=== PATIENT | female | born 1945 | race Caucasian/White ===

== ENCOUNTER 2018-04-09 15:16 | Observation (INO) | payer OTHER ==
[~2018-04-09] VITALS: Ht 152.4 cm; Wt 79.4 kg
[2018-04-09] VITALS (8 sets, daily range): BP systolic 128–161; BP diastolic 60–89; Ht 152.4 cm; Wt 79.4 kg
--- NOTE | ~2018-04-09 | HEMODYNAMI ---
PATIENT:TIFFANY CONTEH MEDICAL RECORD: [id number] : 45 LOC[facility] ADMISSION DATE: 04/09/18 Generatedon:04/10/20189:42 Patient name: TIFFANY CONTEH Patient #: [id number] SSN: : Date of study: 04/10/2018 Page: Of Hemodynamic Procedure Report Patient Data Patient Demographics Procedure consent was obtained First Name: TIFFANY Gender: Female Last Name: WERO : 1945 Patient #: [id number] Age: 73 year(s) Race: Unknown Additional ID: [id number] Contact details Address: [address] [place] [address] State: [place] City: [facility] Zip code: [address] Past Medical History Allergies Allergen Reaction Date Comments Reported Other allergy 04/10/2018 calin Maria codiene Admission Admission Data Admission Date: 04/09/2018 Admission Time: 22:14 Room #: [facility] Procedure Procedure Types Cath Procedure Diagnostic Procedure [facility] w/Coronaries Sedation Charges Moderate Sedation up to 30 minutes PCI Procedure Coronary Stent Coronary Stent Initial Procedure Description Procedure Date Procedure Date: 04/10/2018 Procedure Start Time: 9:10 Procedure End Time: 9:42 Procedure Staff Name Function Gab Peoples MD Performing Physician Radha Valentine RT Monitor Kem Rosario RN Nurse Melvi Watt RT Scrub Procedure Data Cath Procedure Fluoroscopy Diagnostic fluoroscopy Total fluoroscopy Time: 5.8 time: 5.8 min min Diagnostic fluoroscopy Total fluoroscopy dose: 656 dose: 656 mGy mGy Contrast Material Contrast Material Type Amount (ml) Isovue 300 72 Entry Location Entry Primary Successful Side Size Upsize Upsize Entry Closure [place] ccessful Closure Location (Fr) 1 (Fr) 2 (Fr) Remarks Device Remarks Radial Right 6 Fr Mechanical artery Short Compression Estimated blood loss: 10 ml Diagnostic catheters Device Type Used For End Catheter Placement DIAGNOSTIC Praveen 110cm LV Angiography 5Fr catheter ([id number]) DIAGNOSTIC Praveen 110cm Right Coronary 5Fr catheter ([id number]) Angiography DIAGNOSTIC Praveen 110cm Left Coronary 5Fr catheter (439211) Angiography Procedure Complications No complications Procedure Medications Medication Administration Route Dosage 0.9% NaCl I.V. 100 ml/hr Oxygen etCO2 Nasal cannula 2 l/min Heparin Flush Bag added to field 2 bags (1000units/500ml NS) Lidocaine 2% added to field 20 Radial Cocktail added to field 1 syringe (Verapomil 2mg/Nitro 400mcg/Heparin 1500units) Versed I.V. 1 mg Fentanyl I.V. 50 mcg Radial Cocktail I.A. 1 syringe (Verapomil 2mg/Nitro 400mcg/Heparin 1500units) Radial Cocktail added to field 1 syringe (Verapomil 2mg/Nitro 400mcg/Heparin 1500units) Radial Cocktail I.A. 1 syringe (Verapomil 2mg/Nitro 400mcg/Heparin 1500units) Angiomax (bolus) I.V. 11 ml Angiomax Drip I.V. drip 26 ml/hr (250mg/50ml NS) (Standard) Nitroglycerin IC/IA I.C. 300 mcg Angiomax Drip 26 ml/hr (250mg/50ml NS) (Standard) Plavix P.O. 300 mg Hemodynamics Rest Heart Rate: 83 (bpm) Pressure Samples Time Site Value (mmHg) Purpose Heart Use Rate(bpm) 9:19 LV 129/0,10 EDP 91 Gradients Valve Time Site Site Mean SEP/DFP Peak To Heart Use 1 2 (mmHg) (sec/min) Peak Rate (mmHg) (bpm) Aortic 9:19 LV AO 95 Snapshots Pre Cath Intra NCS Post Cath Vital Signs Time Heart Resp SPO2 etCO2 NIBP (mmHg) Rhythm Pain Sedation Rate (ipm) (%) (mmHg) Status Level (bpm) 8:59:02 84 33 97 0 218/92(136) NSR 0 (11) 10(A) , No pain 9:04:17 83 23 99 36 201/86(133) NSR 0 (11) 10(A) , No pain 9:09:26 81 16 98 42 190/76(132) NSR 0 (11) 10(A) , No pain 9:15:33 87 17 97 41.3 188/79(119) NSR 0 (11) 10(A) , No pain 9:20:32 89 20 97 38.3 160/75(117) NSR 0 (11) 10(A) , No pain 9:25:29 89 19 97 40.5 180/72(114) NSR 0 (11) 10(A) , No pain 9:30:30 88 18 98 39.8 191/80(128) NSR 0 (11) 10(A) , No pain 9:35:37 95 25 98 40.6 166/71(103) NSR 0 (11) 10(A) , No pain 9:40:37 86 17 97 38.3 183/70(125) NSR 0 (11) 10(A) , No pain Medications Time Medication Route Dose Verified Delivered Reason Note s Effectiveness by by 8:59:01 0.9% NaCl I.V. 100 Kem Kem Per physician ml/hr Abraham Rosario RN RN 8:59:28 Oxygen etCO2 2 l/min Kem Kem Per physician Nasal Abraham Rosario cannula RN RN 8:59:39 Heparin Flush added 2 bags Kem Kem used for Bag to Lorigan Lorfatimah procedure (1000units/500ml [facility] RN RN NS) 8:59:50 Lidocaine 2% added 20ml Kem Kem for local to vial Lorigan Lorigan anesthetic field RN RN 9:00:09 Radial Cocktail added 1 Kem Kem used for (Verapomil to syringe Lorigan Lorigan procedure 2mg/Nitro field RN RN 400mcg/Heparin 1500units) 9:06:00 Versed I.V. 1 mg Kem Kem for sedation Abraham Rosario RN RN 9:06:08 Fentanyl I.V. 50 mcg Kem Kem for sedation Abraham Rosario RN RN 9:15:23 Radial Cocktail I.A. 1 Kem Gab for (Verapomil syringe Abraham Peoples MD vasodilation 2mg/Nitro RN 400mcg/Heparin 1500units) 9:15:59 Radial Cocktail added 1 Kem Kem for (Verapomil to syringe Lorigan Lorigan vasodilation 2mg/Nitro field RN RN 400mcg/Heparin 1500units) 9:16:09 Radial Cocktail I.A. 1 Kem Gab for (Verapomil syringe Abraham Peoples MD vasodilation 2mg/Nitro RN 400mcg/Heparin 1500units) 9:28:32 Angiomax (bolus) I.V. 11 ml Kem Kem for Abraham Rosario anticoagulation RN RN 9:30:59 Angiomax Drip I.V. 26 Kem Kem for (250mg/50ml NS) drip ml/hr Abraham Rosario anticoagulation (Standard) RN RN 9:35:05 Nitroglycerin I.C. 300 mcg Kemdayna De Guzman for IC/IA Abraham Peoples MD vasodilation RN 9:38:05 Angiomax Drip stopped 26 Kem Kem Per physician (250mg/50ml NS) ml/hr Abraham Lorigan (Standard) RN RN 9:38:30 Plavix P.O. 300 mg Kem Kem for Abraham Rosario antiplatelet RN RN therapy Procedure Log Time Note 8:33:17 Time tracking: Regular hours (M-F 7:00 - 5:00) 8:33:21 Plan of Care:Hemodynamics will remain stable., Cardiac rhythm will remain stable., Comfort level will be maintained., Respiratory function will remain adequate., Patient/ family verbilizes understanding of procedure., Procedure tolerated without complication., Recovers from procedure without complications.. 8:39:27 Kem Rosario RN sent for patient. Start room use. 8:39:30 Signed procedure consent form obtained from patient. 8:49:09 Patient received from ED to CCL 1 Alert and oriented. Tansferred to table in Supine position. 8:49:10 Warm blankets applied, and augusto hugger turned on for patient comfort. 8:49:10 Correct patient and procedure confirmed by team. 8:49:11 ECG and BP/O2 sat monitors applied to patient. 8:56:46 Vital chart was started 8:59:01 0.9% NaCl 100 ml/hr I.V. was administered by Kem Rosario RN; Per physician; 8:59:28 Oxygen 2 l/min etCO2 Nasal cannula was administered by Kem Rosario RN; Per physician; 8:59:39 Heparin Flush Bag (1000units/500ml NS) 2 bags added to field was administered by Kem Rosario RN; used for procedure; 8:59:50 Lidocaine 2% 20ml vial added to field was administered by Kem Rosario RN; for local anesthetic; 9:00:09 Radial Cocktail (Verapomil 2mg/Nitro 400mcg/Heparin 1500units) 1 syringe added to field was administered by Kem Rosario RN; used for procedure; 9:00:56 Full Disclosure recording started 9:01:04 Baseline sample Acquired. 9:01:09 Rhythm: sinus rhythm 9:01:31 H&P Date Dictated: 04/09/2018 Within 30 days and on chart., ER History on chart.. 9:01:32 Pre-procedure instructions explained to patient. 9:01:33 Pre-op teaching completed and patient verbalized understanding. 9:01:34 Family in waiting room. 9:01:36 Patient NPO since Midnight. 9:02:29 Patient allergic to Other allergycalin Maria codiene 9:02:31 Is the patient allergic to Iodine/contrast media? No. 9:02:33 Is patient on blood thinner?Yes 9:02:35 ACC The patient was administered the following blood thiners within the last 24 hours: ACCPlavix 9:02:37 Patient diabetic? Yes. 9:02:40 Previous problem with sedation/anesthesia? No ? 9:02:57 Snore? No 9:02:58 Sleep apnea? No 9:02:59 Deviated septum? No 9:03:00 Opens mouth fully? Yes 9:03:01 Sticks out tongue? Yes 9:03:02 Airway obstruction? No ? 9:03:07 Dentures? No ? 9:03:25 PATIENT HAS BEEN OFF METFORMIN FOR 2 MONTHS 9:03:28 Pre procedure: right dorsailis pedis pulse 2+ Normal; easily identifiable; not easily obliterated 9:03:30 Modified Jose Enrique's test Ulnar < 7 seconds 9:03:32 Patient pain scale 0/10 ?. 9:03:38 IV patent on arrival in left forearm with 0.9% NaCl at O. 9:03:40 Lab results completed and on chart. 9:03:44 Right Radial & Right Groin area was prepped with chlora-prep and draped in sterile fashion 9:03:45 Alarms reviewed by R. N. 9:03:45 Sharps counted by scrub and verified by R.N. 9:03:49 Use device set Radial Dx or PCI 9:03:50 ACIST Syringe (07053) opened to sterile field. 9:03:50 Medline Cath Pack ([id number]) opened to sterile field. 9:03:51 Bag Decanter (2002S) opened to sterile field. 9:03:51 DIAGNOSTIC WIRE .035 260cm J wire (673196) opened to sterile field. 9:03:52 ACIST Hand Control (92763) opened to sterile field. 9:03:52 ACIST Manifold (85963) opened to sterile field. 9:03:53 MBrace Wrist Support ([id number]) opened to sterile field. 9:03:54 SHEATH 6Fr Prelude Radial ([id number]) opened to sterile field. 9:04:01 Final Timeout: patient, procedure, and site verified with staff and physician. All members of the team are in agreement. 9:04:03 Right Radial site verified by team. 9:04:07 Physical assessment completed. ASA score P 3 - A patient with severe systemic disease as per Gab Peoples MD. 9:04:10 Sedation plan: IV Moderate Sedation Medication:Versed, Fentanyl 9:06:00 Versed 1 mg I.V. was administered by Kem Rosario RN; for sedation; 9:06:08 Fentanyl 50 mcg I.V. was administered by Kem Rosario RN; for sedation; 9:06:47 Zero performed for pressure channel P1 9:10:43 Procedure started. 9:10:53 Local anesthetic to right radial artery with Lidocaine 2% by Gab Peoples MD.INITIAL ACCESS ONLY 9:13:34 ACCESS OBTAINED WITH 21G ACCESS NEEDLE AND FIELDER WIRE 9:14:47 FIELDER XT 190cm guidewire ([id number]) opened to sterile field. 9:15:23 Radial Cocktail (Verapomil 2mg/Nitro 400mcg/Heparin 1500units) 1 syringe I.A. was administered by Gab Peoples MD; for vasodilation; 9:15:26 A 6 Fr Short sheath was inserted into the Right Radial artery 9:15:59 Radial Cocktail (Verapomil 2mg/Nitro 400mcg/Heparin 1500units) 1 syringe added to field was administered by Kem Rosario RN; for vasodilation; 9:16:09 Radial Cocktail (Verapomil 2mg/Nitro 400mcg/Heparin 1500units) 1 syringe I.A. was administered by Gab Peoples MD; for vasodilation; 9:16:59 A DIAGNOSTIC Praveen 110cm 5Fr catheter (829953) was advanced over the wire and used for LV Angiography. 9:19:20 LV gram done using TESFAYE 9:19:21 LV hemodynamics recorded. 9:19:24 Injector settings: Ml/sec: 12, Volume: 8, 9:20:53 A DIAGNOSTIC Praveen 110cm 5Fr catheter ([id number]) was advanced over the wire and used for Right Coronary Angiography. 9:21:47 A DIAGNOSTIC Praveen 110cm 5Fr catheter (744607) was advanced over the wire and used for Left Coronary Angiography. 9:22:35 Catheter removed. 9::59 Use device set [employer] PCI 9:23:01 INFLATOR Merit BasixCompak ([id number]) opened to sterile field. 9:23:01 COPILOT Valve Control ([id number]) opened to sterile field. 9:26:10 6 Fr XBLAD 3.5 SH guide catheter was inserted over the wire 9:27:52 BMW wire advanced. 9:28:32 Angiomax (bolus) 11 ml I.V. was administered by Kem Rosario RN; for anticoagulation; 9:30:59 Angiomax Drip (250mg/50ml NS) (Standard) 26 ml/hr I.V. drip was administered by Kem Rosario RN; for anticoagulation; 9:32:15 Place stent Inflation Number: 1 A ANGÉLICA RX 2.5 x 26 stent ([id number]) was prepped and advanced across the Mid CX. The stent was deployed at 0 NADYA for 0:17 (min:sec). 9:32:47 Stent catheter was removed intact over wire. 9:35:05 Nitroglycerin IC/IA 300 mcg I.C. was administered by Gab Peoples MD; for vasodilation; 9:36:02 Wire removed. 9:36:02 Guide catheter removed. 9:36:12 Sheath removed intact; hemostasis achieved with Mechanical Compression to the Right Radial artery. 9:36:17 Procedure ended.(Physican Out) 9:36:25 Fluoroscopy time 05.80 minutes. 9:36:29 Flurop Dose total: 656 9:36:29 Fluoroscopy dose: 656 mGy 9:36:34 Contrast amount:Isovue 300 72ml. 9:36:35 Sharps counted by scrub and verified by R.N. 9:36:38 TR band inflated with 12cc of air. 9:36:39 Insertion/operative site no bleeding no hematoma. 9:36:48 Post right radial artery:stable, clean and dry 9:36:49 Post Procedure Pulses reassessed and unchanged 9:36:53 Post-procedure physical assessment completed. ASA score P 2 - A patient with mild systemic disease as per Gab Peoples MD. 9:36:55 Post procedure rhythm: unchanged. 9:36:58 Estimated blood loss: 10 ml 9:37:00 Post procedure instruction explained to patient.Patient verbalizes understanding. 9:37:00 Patient needs reinforcement of post procedure teaching. 9:37:28 Procedure type changed to Cath procedure, Diagnostic procedure, LHC, LHC w/Coronaries, Sedation Charges, Moderate Sedation up to 30 minutes, PCI procedure, Coronary Stent, Coronary Stent Initial 9:37:51 TR BAND Standard ([id number]) opened to sterile field. 9:38:05 Angiomax Drip (250mg/50ml NS) (Standard) 26 ml/hr stopped was administered by Kem Rosario RN; Per physician; 9:38:15 GUIDE 6FR XBLAD 3.5 SH catheter ([id number]) opened to sterile field. 9:38:30 Plavix 300 mg P.O. was administered by Kem Rosario RN; for antiplatelet therapy; 9:38:44 BMW 190cm [place] 2 J wire ([id number]) opened to sterile field. 9:39:31 Procedure Complication : No complications 9:39:35 See physician's report for complete and final results. 9:39:37 Procedure and supply charges have been captured, reviewed, submitted and are correct. 9:42:04 Vital chart was stopped 9:42:06 Report given to Pre/Post Procedure Room. 9:42:09 Patient transfered to Pre/Post Procedure Room with Stretcher. 9:42:19 Procedure ended. 9:42:19 Full Disclosure recording stopped 9:42:22 End room use (Document Last) Intervention Summary Intervention Notes Time ActionType Lesion and Equipment Used Action# Pressure Duration Attributes 9:32:15 Place stent Mid CX ANGÉLICA RX 2.5 x 1 0 00:17 26 stent ([id number]) Device Usage Item Name Manufacture Quantity Catalog Number Hospital Part Current Minimal Lot# / Charge Number Stock Stock Serial# Code ACIST Syringe Acist 1 64942 138147 911620 725351 20 (67503) [employer] Medline Cath Cardinal 1 [id number] 625644 51334 811923 5 Pack Health ([id number]) Bag Decanter Microtek 1 2001S 642784 18958 171619 5 (2001S) Medical Inc. DIAGNOSTIC WIRE St Favio 1 787639 866323 810950 295426 30 .035 260cm J wire (732902) ACIST Hand Acist 1 87157 576208 573022 967944 5 Control (10246) [employer] Inc ACIST Manifold Acist 1 05449 613042 782623 577920 5 (87998) [employer] Inc MBrace Wrist Advanced 1 140-0250-00 906074 05575 676201 5 Support Vascular ([id number]) Dynamics SHEATH 6Fr Merit 1 [id number] 823844 962855 135596 5 Prelude Radial Medical ([id number]) FIELDER XT Garcia 1 [id number] 645246 18746 938595 5 190cm guidewire Vascular ([id number]) DIAGNOSTIC Terumo 1 40-7847 792411 969294 073681 5 Praveen 110cm 5Fr catheter (782293) INFLATOR Merit Merit 1 QS5090 336555 421320 344829 15 BasixCompak Medical (EI7574) COPILOT Valve Garcia 1 4606325 955886 406363 585520 5 Control Vascular (6289899) ANGÉLICA RX 2.5 x Medtronic 1 [id number] 684040 8485024 833713 5 [id number] 26 stent ([id number]) TR BAND Terumo 1 [id number] 753148 339939 218661 40 Standard ([id number]) GUIDE 6FR XBLAD Cardinal 1 [id number] 285192 931262 596026 3 3.5 catheter Health (29058228) BMW 190cm Garcia 1 [id number] 737482 24048 225368 5 Wayzata 2 J Vascular wire ([id number]) Signature Audit [place] Stage Time Signature Unsigned Intra-Procedure 04/10/2018 Radha 9:42:34 AM Counts RT(R) Signatures Monitor : Radha Signature : Counts RT Date : Time : [address] [place] [address]
[2018-04-09] MEDS ORDERED: NOLVADEX10 M1 PO (15:37)
[2018-04-09] MEDS ORDERED: LEVOXYL25 MCG (15:38)
[2018-04-09] MEDS ORDERED: CEREFOLIN TAB1 TAB PO (15:38)
[2018-04-09] MEDS ORDERED: HYDROCHLOROTHIA25 MG PO (15:39)
[2018-04-09] MEDS ORDERED: CELEXA10 MG PO (15:39)
[2018-04-09 16:15] LABS: BASOPHILS 0.6 % (0-2); EOSINOPHILS 2.6 % (0-7); HEMATOCRIT 37.2 % (36.0-48.0); HEMOGLOBIN 12.5 g/dL (12-16); IMMATURE GRANULOCYTES 0.3 % (0-5); LYMPHOCYTES 44.7 % (15-50); MCH 31.6 pg (26.0-34.0); MCHC 33.6 g/dL (31.0-37.0); MCV 93.9 fL (80.0-100.0); MEAN PLATELET VOLUME 9.7 fL (7.4-10.4); MONOCYTES 6.7 % (2-11); NEUTROPHILS 45.1 % (40-80); PLATELET COUNT 190 10x3/uL (130-400); RBC 3.96 10x6/uL (4.00-5.40); RDW 13.6 % (11.5-14.5); WBC 6.3 10x3/uL (4.8-10.8)
[2018-04-09 16:37] LABS: ALBUMIN 3.4 g/dL (3.4-5.0); ALKALINE PHOSPHATASE 65 U/L (46-116); ALT (SGPT) 32 U/L (10-68); BILIRUBIN - TOTAL 0.14 mg/dL (0.2-1.3); CALC OSMOLALITY 283 mosm/kg (275-300); CALCIUM 8.9 mg/dL (8.5-10.1); CARBON DIOXIDE 28.3 mmol/L (21.0-32.0); CHLORIDE - SERUM 103 mmol/L (98-107); CREATININE - SERUM 0.7 mg/dL (0.6-1.3); GLUCOSE 183 mg/dL (74-106); POTASSIUM - SERUM 3.9 mmol/L (3.5-5.1); PROTEIN - SERUM 6.8 g/dL (6.4-8.2); SODIUM 139 mmol/L (136-145); UREA NITROGEN 15 mg/dL (7-18); eGFR NON AFRICAN AMERICAN 87 mL/min (90-120)
[2018-04-09 16:49] LABS: CKMB 0.8 U/L (0.0-3.6); CREATINE KINASE 41 UL (21-215)
[2018-04-09 17:03] LABS: TROPONIN-I < 0.017 ng/mL (0.000-0.060)
[2018-04-09 19:13] LABS: APPEARANCE CLEAR (CLEAR); BILIRUBIN NEGATIVE (NEGATIVE); COLOR YELLOW (YELLOW); GLUCOSE NEGATIVE (NEGATIVE); KETONE NEGATIVE (NEGATIVE); NITRITE NEGATIVE (NEGATIVE); PROTEIN NEGATIVE (NEGATIVE); SPECIFIC GRAVITY 1.015 (1.005-1.020); UROBILINOGEN NORMAL (NORMAL)
[2018-04-09 20:11] LABS: CKMB 0.9 U/L (0.0-3.6); CREATINE KINASE 37 UL (21-215); TROPONIN-I < 0.017 ng/mL (0.000-0.060)
[2018-04-10] VITALS (8 sets, daily range): BP systolic 120–150; BP diastolic 37–71
[2018-04-10 05:05] LABS: BASOPHILS 0.8 % (0-2); EOSINOPHILS 3.9 % (0-7); HEMATOCRIT 38.6 % (36.0-48.0); HEMOGLOBIN 12.9 g/dL (12-16); IMMATURE GRANULOCYTES 0.3 % (0-5); LYMPHOCYTES 44.9 % (15-50); MCH 31.6 pg (26.0-34.0); MCHC 33.4 g/dL (31.0-37.0); MCV 94.6 fL (80.0-100.0); MONOCYTES 8.7 % (2-11); NEUTROPHILS 41.4 % (40-80); PLATELET COUNT 201 10x3/uL (130-400); RBC 4.08 10x6/uL (4.00-5.40); RDW 13.5 % (11.5-14.5); WBC 6.4 10x3/uL (4.8-10.8)
[2018-04-10 05:35] LABS: ALBUMIN 3.3 g/dL (3.4-5.0); ALKALINE PHOSPHATASE 55 U/L (46-116); ALT (SGPT) 33 U/L (10-68); BILIRUBIN - TOTAL 0.16 mg/dL (0.2-1.3); CALC OSMOLALITY 278 mosm/kg (275-300); CALCIUM 8.9 mg/dL (8.5-10.1); CARBON DIOXIDE 32.7 mmol/L (21.0-32.0); CHLORIDE - SERUM 103 mmol/L (98-107); CKMB 0.7 U/L (0.0-3.6); CREATINE KINASE 32 UL (21-215); CREATININE - SERUM 0.8 mg/dL (0.6-1.3); POTASSIUM - SERUM 3.7 mmol/L (3.5-5.1); PROTEIN - SERUM 6.6 g/dL (6.4-8.2); SODIUM 139 mmol/L (136-145); TROPONIN-I < 0.017 ng/mL (0.000-0.060); UREA NITROGEN 13 mg/dL (7-18); eGFR NON AFRICAN AMERICAN 74 mL/min (90-120)
[2018-04-10 05:36] LABS: GLUCOSE 123 mg/dL (74-106)
[2018-04-10] MEDS ORDERED: PLAVIX75 MG PO (09:54)
[2018-04-10] MEDS ORDERED: LIPITOR20 MG PO (09:55)
[2018-04-10] MEDS ORDERED: LOPRESSOR25 MG PO (09:55)
== END 2018-04-10 14:04 | disposition home or self-care (01) ==
LOC: D.ER 15:16 → D.CLR 22:14 → D.EDHOLD 22:14 → OBSVTIME 22:14 → D.CLR 04-10 08:47
PROVIDERS: Family Medicine
DX: I25.10 Atherosclerotic heart disease of native coronary artery without angina pectoris (principal); E11.9 Type 2 diabetes mellitus without complications; I10 Essential (primary) hypertension; E78.00 Pure hypercholesterolemia, unspecified

== ENCOUNTER → 2018-04-24 17:46 | Outpatient (CLI) | payer OTHER ==
[~2018-04-24 17:46] MED LIST: CELEXA10 MG PO; CEREFOLIN TAB1 TAB PO; HYDROCHLOROTHIA25 MG PO; LEVOXYL25 MCG; LIPITOR20 MG PO; LOPRESSOR25 MG PO; NOLVADEX10 M1 PO; PLAVIX75 MG PO
[2018-04-24 18:48] LABS: CHOL - HDL RATIO 4.2 ratio (2.3-4.1); LDL-HDL RATIO 2.5 ratio (1.5-3.5)
== END | disposition home or self-care (01) ==
LOC: D.LABREF 17:46
PROVIDERS: Internal Medicine Cardiovascular Disease
DX: E78.5 Hyperlipidemia, unspecified (principal)

== ENCOUNTER → 2018-05-22 17:17 | Outpatient (CLI) | payer OTHER ==
[2018-05-22 17:46] LABS: ANION GAP 11.4 mmol/L (8-16); CALCIUM 8.7 mg/dL (8.5-10.1); CARBON DIOXIDE 27.6 mmol/L (21.0-32.0); CREATININE - SERUM 0.8 mg/dL (0.6-1.3)
== END | disposition home or self-care (01) ==
LOC: D.LABREF 17:17
PROVIDERS: Internal Medicine Cardiovascular Disease
DX: I10 Essential (primary) hypertension (principal)

== ENCOUNTER → 2018-08-14 16:44 | Outpatient (CLI) | payer OTHER ==
[2018-08-14 19:14] LABS: CHOL - HDL RATIO 7.8 ratio (2.3-4.1); LDL-HDL RATIO 5.2 ratio (1.5-3.5)
== END | disposition home or self-care (01) ==
LOC: D.LABREF 16:44
PROVIDERS: Internal Medicine Cardiovascular Disease
DX: I25.10 Atherosclerotic heart disease of native coronary artery without angina pectoris (principal)

== ENCOUNTER → 2018-11-27 18:42 | Outpatient (CLI) | payer OTHER ==
[2018-11-27 19:06] LABS: CHOL - HDL RATIO 3.1 ratio (2.3-4.1); LDL-HDL RATIO 1.2 ratio (1.5-3.5)
== END | disposition home or self-care (01) ==
LOC: D.LABREF 18:42
PROVIDERS: ATTEND Internal Medicine Cardiovascular Disease
DX: E78.5 Hyperlipidemia, unspecified (principal)

== ENCOUNTER → 2019-12-03 18:55 | Outpatient (CLI) | payer OTHER ==
[2019-12-03 21:13] LABS: CHOL - HDL RATIO 3.7 ratio (2.3-4.1); LDL-HDL RATIO 1.8 ratio (1.5-3.5)
== END | disposition home or self-care (01) ==
LOC: D.LABREF 18:55
PROVIDERS: ATTEND Internal Medicine Cardiovascular Disease
DX: E78.5 Hyperlipidemia, unspecified (principal)

== ENCOUNTER → 2020-01-07 08:13 | Outpatient (CLI) | payer OTHER | END | disposition home or self-care (01) | LOC: D.HCCARDIO 08:13 | PROVIDERS: ATTEND Internal Medicine Cardiovascular Disease | DX: I25.10 Atherosclerotic heart disease of native coronary artery without angina pectoris (principal) ==

== ENCOUNTER 2020-01-14 07:03 | Outpatient (CLI) | payer OTHER ==
[2020-01-14] VITALS (8 sets, daily range): BP systolic 119–142; BP diastolic 57–65; Ht 152.4 cm; Wt 70.5 kg
[~2020-01-14] VITALS: Ht 152.4 cm; Wt 70.5 kg
--- NOTE | ~2020-01-14 | HEMODYNAMI ---
PATIENT:TIFFANY CONTEH MEDICAL RECORD: [id number] : 45 LOCATION:D.CAT ADMISSION DATE: 01/14/20 Generatedon:01/14/202011:02 Patient name: TIFFANY CONTEH Patient #: [id number] SSN: [id number] : 1945 Date of study: 01/14/2020 Page: Of Hemodynamic Procedure Report Patient Data Patient Demographics Procedure consent was obtained First Name: TIFFANY Gender: Female Last Name: WERO : 1945 Patient #: [id number] Age: 74 year(s) Race: SSN: [id number] Additional ID: [id number] Contact details Address: [address] [place] [address] State: [place] City: [facility] Zip code: [address] Past Medical History Performed procedures and imaging results Date Procedure Procedure Results Comments 01/07/2020 Stress testing Positive->Intermediate with SPECT MPI risk Allergies Allergen Reaction Date Comments Reported Other allergy 04/10/2018 calin Maria codiene Other allergy 01/14/2020 CALIN WALLACE TALWIN Admission Admission Data Admission Date: 01/14/2020 Admission Time: 7:03 Arrival Date: 01/14/2020 Arrival Time: 0:00 Admit Source: Other Insurance Payor: Private health insurance [facility] #: [id number] Height (in.): 68 BSA: 1.7 (m2) Height (cm.): 172.72 BMI: 19.81 (kg/m2) Weight (lbs.): 130.27 Weight (kg.): 59.09 Lab Results Lab Result Date: 01/14/2020 Lab Result Time: 0:00 Biochemistry Name Units Result Min Max BUN mg/dl 17 --(---*)-- 7 18 Creatinine mg/dl 0.8 --(-*--)-- 0.6 1.3 eGFR ml/min 73.84040 *-(----)-- 90 120 NONAFRICAN CBC Name Units Result Min Max Hematocrit % 41.2 -*(----)-- 42 54 Hemoglobin g/dl 13.6 --(*---)-- 13.5 17.5 Procedure Procedure Types Cath Procedure Diagnostic Procedure [facility] w/Coronaries FFR/IVUS FFR Initial Sedation Charges Moderate Sedation up to 45 minutes PCI Procedure Hemochron ACT Test Procedure Description Procedure Date Procedure Date: 01/14/2020 Procedure Start Time: 10:18 Procedure End Time: 11:00 Procedure Staff Name Function Donovan Mederos MD Performing Physician Evette Welch RT Monitor Breanna Iniguez RT Scrub Jam Winston RN Nurse Procedure Data Cath Procedure Fluoroscopy Diagnostic fluoroscopy Total fluoroscopy Time: 5 time: 5 min min Diagnostic fluoroscopy Total fluoroscopy dose: 362 dose: 362 mGy mGy Contrast Material Contrast Material Type Amount (ml) Isovue 300 59 Entry Location Entry Primary Successful Side Size Upsize Upsize Entry Closure Succes sful Closure Location (Fr) 1 (Fr) 2 (Fr) Remarks Device Remarks Femoral Right 5 Fr AFTER Exoseal artery MICRO ACCESS Estimated blood loss: 10 ml Diagnostic catheters Device Type Used For End Catheter Placement MULTIPACK JL 4.0 5Fr Procedure catheter MULTIPACK 3DRC 5Fr Procedure catheter MULTIPACK Pigtail 5 Fr Procedure catheter Procedure Complications No complications Procedure Medications Medication Administration Route Dosage Versed I.V. 1 mg Fentanyl I.V. 50 mcg Oxygen etCO2 Nasal cannula 2 l/min Lidocaine 2% added to field 20 Heparin Flush Bag added to field 2 bags (1000units/500ml NS) 0.9% NaCl I.V. 100 ml/hr Fentanyl I.V. 50 mcg Versed I.V. 1 mg Versed I.V. 1 mg Fentanyl I.V. 50 mcg Heparin Bolus I.V. 2000 units Fentanyl I.V. 50 mcg Hemodynamics Rest BSA: 1.7 (m2) HGB: 13.6 (g/dl) O2 Consumption: Estimated: 157.76 (ml/min) O2 Con sumption indexed: Estimated:92.8 (ml/min/m) Heart Rate: 74 (bpm) Pressure Samples Time Site Value (mmHg) Purpose Heart Use Rate(bpm) 10:49 LV 113/14,21 Snapshot 65 10:49 AO 126/65(91) Pullback 81 10:49 LV 115/-3,12 Pullback 81 Gradients Valve Time Site 1 Site 2 Mean SEP/DFP Peak To Heart Use (mmHg) (sec/min) Peak Rate (mmHg) (bpm) Aortic 10:49 LV AO 0 4 0 81 115/-3,12 126/65(91) Calculations Valve P-P Mean Valve Index Valve Source Name Gradient Area Flow (cm2) Aortic 0 0 0 0 Snapshots Pre Cath Intra NCS Post Cath Vital Signs Time Heart Resp SPO2 etCO2 NIBP (mmHg) Rhythm Pain Sedation Rate (ipm) (%) (mmHg) Status Level (bpm) 10:10:10 72 21 98 0 168/89(133) NSR 0 (11) 10(A) , No pain 10:14:30 71 18 97 39 155/79(134) NSR 0 (11) 10(A) , No pain 10:18:46 72 24 98 40.5 124/73(96) NSR 0 (11) 10(A) , No pain 10:22:52 67 14 98 35.2 125/73(87) NSR 0 (11) 10(A) , No pain 10:26:54 73 18 98 39 142/84(111) NSR 0 (11) 9(A) , No pain 10:31:04 75 17 97 41.2 140/75(107) NSR 0 (11) 9(A) , No pain 10:35:14 69 16 99 40.5 142/75(122) NSR 0 (11) 9(A) , No pain 10:39:25 74 16 97 37.5 133/70(101) NSR 0 (11) 9(A) , No pain 10:43:31 75 15 97 41.2 135/78(104) NSR 0 (11) 9(A) , No pain 10:47:41 87 13 96 41.2 133/70(101) NSR 0 (11) 9(A) , No pain 10:51:49 81 12 97 40.4 128/76(91) NSR 0 (11) 9(A) , No pain 10:55:57 80 13 96 33.7 124/68(107) NSR 0 (11) 10(A) , No pain 11:00:56 78 13 98 44.2 144/81(113) NSR 0 (11) 9(A) , No pain Medications Time Medication Route Dose Verified Delivered Reason Notes Effectiveness by by 10:10:58 Oxygen etCO2 2 Donovan Buffie used for Nasal l/min Gatito Winston RN procedure cannula 10:11:04 Lidocaine 2% added 20ml Donovan Buffie used for to vial Gatito Winston RN procedure field 10:11:10 Heparin Flush added 2 Donovan Buffie used for Bag to bags Gatito Winston RN procedure (1000units/500ml field NS) 10:11:18 0.9% NaCl I.V. 100 Donovan Buffie Per physician ml/hr Gatito Winston RN 10:15:34 Versed I.V. 1 mg Donovan Buffie for sedation Gatito Winston RN 10:15:39 Fentanyl I.V. 50 Donovan Buffie for sedation mcg Gatito Winston RN 10:22:33 Versed I.V. 1 mg Donovan Buffie for sedation Gatito Winston RN 10:22:41 Fentanyl I.V. 50 Donovan Buffie for sedation mcg Gatito Winston RN 10:35:14 Versed I.V. 1 mg Donovan Buffie for sedation Gatito Winston RN 10:35:17 Fentanyl I.V. 50 Donovan Buffie for sedation mcg Gtaito Winston RN 10:43:19 Fentanyl I.V. 50 Donovan Buffie for sedation mcg Gatito Winston RN 10:51:48 Heparin Bolus I.V. 2000 Donovan Buffie for Verif ied units Gatito Winston RN anticoagulation with dr Mederos for IFR Procedure Log Time Note 9:44:14 Diagnostic Cath Status : Elective 9:44:45 Procedure Status Elective Heart Cath (OP). 9:44:48 Jam Winston RN sent for patient. Start room use. 9:44:49 Time tracking: Regular hours (M-F 7:00 - 5:00) 9:44:53 Plan of Care:Hemodynamics will remain stable., Cardiac rhythm will remain stable., Comfort level will be maintained., Respiratory function will remain adequate., Patient/ family verbilizes understanding of procedure., Procedure tolerated without complication., Recovers from procedure without complications.. 9:53:19 Lab Result : Hemoglobin 13.6 g/dl 9:53:19 Lab Result : eGFR NONAFRICAN 73.33351 ml/min 9:53:19 Lab Result : BUN 17 mg/dl 9:53:19 Lab Result : Creatinine 0.8 mg/dl 9:53:20 Lab Result : Hematocrit 41.2 % 9:53:26 Arrival Date: 01/14/2020 12:00:00 AM 9:53:26 Admit Source: Other 9:54:17 Patient Height : 68 inches 9:54:22 Patient Weight : 130.27 lbs 9:54:26 Insurance Payor : Private health insurance 9:55:46 Patient allergic to Other allergyCODEINE, BASSEM JORDAN 9:56:36 Informed consent obtained and on chart 9:57:32 H&P Date Dictated: 01/14/2020 Within 30 days and on chart.. 9:57:32 Pre-procedure instructions explained to patient. 9:57:33 Pre-op teaching completed and patient verbalized understanding. 9:57:34 Family unavailable. 9:57:36 Patient NPO since Midnight. 9:57:47 Lab results completed and on chart. 9:58:01 Stress Test: yes; abnormal INFERIOR 9:58:03 Alarms reviewed by R. N. 9:58:03 Sharps counted by scrub and verified by R.N. 10:01:01 Patient received from Pre/Post Procedure Room to CCL 1 Alert and oriented. Tansferred to table in Supine position. 10:01:02 Warm blankets applied, and augusto hugger turned on for patient comfort. 10:01:03 Correct patient and procedure confirmed by team. 10:01:03 ECG and BP/O2 sat monitors applied to patient. 10:01:08 Is the patient allergic to Iodine/contrast media? No. 10:09:05 Vital chart was started 10:10:58 Oxygen 2 l/min etCO2 Nasal cannula was administered by Jam Winston RN; used for procedure; Verbal order read back and verified. 10:11:04 Lidocaine 2% 20ml vial added to field was administered by Jam Winston RN; used for procedure; Verbal order read back and verified. 10:11:09 ----Pre-sedation anethsthesia assessment.---- 10:11:10 Heparin Flush Bag (1000units/500ml NS) 2 bags added to field was administered by Jam Winston RN; used for procedure; Verbal order read back and verified. 10:11:12 Previous problem with sedation/anesthesia? No ? 10:11:14 Snore? Unknown 10:11:16 Sleep apnea? No 10:11:17 Deviated septum? No 10:11:18 0.9% NaCl 100 ml/hr I.V. was administered by Jam Winston RN; Per physician; Verbal order read back and verified. 10:11:18 Opens mouth fully? Yes 10:11:19 Sticks out tongue? Yes 10:11:21 Airway obstruction? No ? 10:11:26 Dentures? Yes IN TIGHT 10:11:29 Was the patient premedicated? No 10:11:32 Is patient on blood thinner?No 10:11:35 Patient diabetic? Yes. 10:11:37 If diabetic: On Metformin? Yes 10:11:43 If on Metformin: Last Dose? 01/12/2020 10:11:46 Patient not . Patient is over age 55. 10:11:52 Pre procedure: right dorsailis pedis pulse 2+ Normal; easily identifiable; not easily obliterated 10:11:55 Modified Jose Enrique's test Ulnar > 7 seconds. 10:11:57 Patient pain scale 0/10 ?. 10:12:04 IV patent on arrival in right forearm with 0.9% NaCl at [facility]. 10:12:11 Right groin area was prepped with chlora-prep and draped in sterile fashion 10:12:19 Full Disclosure recording started 10:12:21 Baseline sample Acquired. 10:12:25 Rhythm: sinus rhythm 10:12:28 Use device set Femoral Dx 10:12:30 ACIST Syringe (20819) opened to sterile field. 10:12:30 Bag Decanter (2002) opened to sterile field. 10:12:31 Medline Cath Pack ([id number]) opened to sterile field. 10:12:32 ACIST Hand Control (81810) opened to sterile field. 10:12:33 ACIST Manifold (32827) opened to sterile field. 10:12:33 DIAGNOSTIC Multipack 5Fr catheter set (CU3219) opened to sterile field. 10:12:34 SHEATH 5FR Branchport (ULT208) opened to sterile field. 10:12:35 EMERALD Guide Wire (314-990) opened to sterile field. 10:15:23 --------ALL STOP TIME OUT------ 10:15:23 Final Timeout: patient, procedure, and site verified with staff and physician. All members of the team are in agreement. 10:15:25 Right groin site verified by team. 10:15:30 Fire Safety Assessment: A--An alcohol-based skin anteseptic being used preoperatively., C--Open oxygen or nitrous oxide is being used., D--An ESU, laser, or fiber-optic light is being used. 10:15:33 Physical assessment completed. ASA score P 2 - A patient with mild systemic disease as per Donovan Mederos MD. 10:15:34 Versed 1 mg I.V. was administered by Jam Winston RN; for sedation; Verbal order read back and verified. 10:15:37 Sedation plan: IV Moderate Sedation Medication:Versed, Fentanyl 10:15:39 Fentanyl 50 mcg I.V. was administered by Jam Winston RN; for sedation; Verbal order read back and verified. 10:16:55 Hemodynamic formulas in Rest were re-calculated based on hemoglobin value from 01/14/2020 12:00:00 AM 10:17:00 2) 60-89 Mildly reduced kidney function, and other findings (as for stage 1) point to kidney disease. 10:17:03 Maximum allowable contrast dose (3.7 X eGFR X 0.75)205 ml. 10:18:35 Procedure started. 10:18:44 Local anesthetic to right femoral artery with Lidocaine 2% by Donovan Mederos MD.INITIAL ACCESS ONLY 10:19:46 Zero performed for pressure channel P1 10:22:33 Versed 1 mg I.V. was administered by Jam Winston RN; for sedation; Verbal order read back and verified. 10:22:41 Fentanyl 50 mcg I.V. was administered by Jam Winston RN; for sedation; Verbal order read back and verified. 10:33:39 MICROPUNCTURE 4FR Cook (Y48474) opened to sterile field. 10:34:04 UNABLE TO ACCESS RT FEMORAL ARTERY PROCEEDING WITH MICRO . 10:35:14 Versed 1 mg I.V. was administered by Jam Winston RN; for sedation; Verbal order read back and verified. 10:35:17 Fentanyl 50 mcg I.V. was administered by Jam Winston RN; for sedation; Verbal order read back and verified. 10:42:41 A 5 Fr sheath was inserted into the Right Femoral arteryAFTER MICRO ACCESS 10:43:19 Fentanyl 50 mcg I.V. was administered by Jam Winston RN; for sedation; Verbal order read back and verified. 10:43:24 A MULTIPACK JL 4.0 5Fr catheter was advanced over the wire and used for Procedure. 10:43:28 LCA angiography performed. 10:43:31 Injector settings: Ml/sec: 3, Volume: 6, 10:45:25 Catheter exchanged over wire. 10:46:11 A MULTIPACK 3DRC 5Fr catheter was advanced over the wire and used for Procedure. 10:46:16 RCA angiography performed. 10:46:19 Injector settings: Ml/sec: 3, Volume: 6, 10:47:16 ACCDominant side:Co-Dominant 10:47:33 Catheter exchanged over wire. 10:48:18 A MULTIPACK Pigtail 5 Fr catheter was advanced over the wire and used for Procedure. 10:48:25 Use device set GATITO PCI 10:49:14 LV hemodynamics recorded. 10:49:16 LV gram done using TESFAYE 10:49:18 Injector settings: Ml/sec: 5, Volume: 15, 10:49:25 EF : 60 % 10:49:42 Catheter exchanged over wire. 10:49:44 Proceeding to intervention. 10:50:09 INFLATOR Merit BasixCompak (MR5646) opened to sterile field. 10:50:10 TUBING High Pressure Extension Tubing (Gatito) ([id number]) opened to sterile field. 10:50:17 Robinson Verrata Plus pressure wire (07324C) opened to sterile field. 10:51:08 5 Fr JL 4 guide catheter was inserted over the wire 10:51:48 Heparin Bolus 2000 units I.V. was administered by Jam Winston RN; for anticoagulation; Verified with dr Mederos for IFR Verbal order read back and verified. 10:52:55 FFR/IFR wire advanced. 10:53:50 Wire advanced across lesion. 10:54:18 Circ lesion measured at .98 with IFR 10:54:47 Circ lesion measured at .97 with IFR 10:55:10 Wire removed. 10:55:11 Guide catheter removed. 10:55:22 EXOSEAL 5Fr (EX500) opened to sterile field. 10:55:48 Sheath removed intact; hemostasis achieved with Exoseal to the Right Femoral artery. 10:55:57 Fluoroscopy time 05.00 minutes. 10:56:01 Fluoroscopy dose: 362 mGy 10:56:01 Flurop Dose total: 362 10:56:06 Dose Area Product 99693 mGy/cm. 10:56:10 Contrast amount:Isovue 300 59ml. 10:56:11 Procedure ended.(Physican Out) 10:56:13 Maximum allowable dose exceeded? No. 10:56:14 Sharps counted by scrub and verified by R.N. 10:58:40 Post-op/insertion site Right Femoral artery dressed using a 4 x 4 and Tegaderm. 10:58:46 Post right femoral artery:stable, soft, clean and dry 10:58:47 Post Procedure Pulses reassessed and unchanged 10:58:50 Post procedure: right dorsailis pedis pulse 2+ Normal; easily identifiable; not easily obliterated. 10:58:53 Post-procedure physical assessment completed. ASA score P 2 - A patient with mild systemic disease as per Donovan Mederos MD. 10:58:56 Post procedure rhythm: unchanged. 10:58:58 Estimated blood loss: 10 ml 10:59:01 Patient needs reinforcement of post procedure teaching. 10:59:29 Procedure type changed to Cath procedure, Diagnostic procedure, C, [facility] w/Coronaries, FFR/IVUS, FFR Initial, Sedation Charges, Moderate Sedation up to 45 minutes, PCI procedure, Hemochron ACT Test 11:00:06 Procedure and supply charges have been captured, reviewed, submitted and are correct. 11:00:10 Procedure Complication : No complications 11:00:11 ACT drawn and resulted at 182 seconds. (normal therapeutic range 180-240 seconds). 11:00:12 Vital chart was stopped 11:00:15 [facility] Findings: MVD- PCI performed (see procedure note) 11:00:18 Operative report dictated upon procedure completion. 11:00:19 See physician's report for complete and final results. 11:00:21 Report given to Pre/Post Procedure Room. 11:00:24 Patient transfered to Pre/Post Procedure Room with Stretcher. 11:00:26 Procedure ended. 11:00:26 Full Disclosure recording stopped 11:01:09 End room use (Document Last) 11:01:20 End room use (Document Last) 11:01:40 End room use (Document Last) Device Usage Item Name Manufacture Quantity Catalog Hospital Part Current Mini mal Lot# / Number Charge Number Stock Stock Serial# Code ACIST Syringe Acist 1 85244 910296 534861 [id number] 20 (25506) Medical Systems Inc Bag Decanter Microtek 1 2001S 345649 73296 144831 5 (2001S) Medical Inc. Medline Cath Medline 1 [id number] 951394 49509 644824 5 Pack ([id number]) ACIST Hand Acist 1 00748 638020 945219 015159 5 Control Medical (94509) Systems Inc ACIST Acist 1 21218 227044 265616 208249 5 Manifold Medical (72787) Systems Inc DIAGNOSTIC Cardinal 1 EC2923 099057 01589 424261 30 Multipack 5Fr Health catheter set (LA1218) SHEATH 5FR Terumo 1 ECA580 191630 201951 418507 5 Branchport (MSJ403) EMERALD Guide Cardinal 1 502-455 041741 575518 031553 5 Wire Health (502-455) MICROPUNCTURE Cook Medical 1 O34420 497080 438311 566735 5 4FR Cook (H43669) MULTIPACK JL Cardinal 1 432628 5 4.0 5Fr Health catheter MULTIPACK Cardinal 1 [id number] 5 3DRC 5Fr Health catheter MULTIPACK Cardinal 1 471602 5 Pigtail 5 Fr Health catheter INFLATOR Merit 1 KX4832 369267 836275 028617 15 Merit Medical BasixCompak (QL4479) TUBING High Merit 1 [id number] 087388 82119 051478 10 Pressure Medical Extension Tubing (Gatito) ([id number]) Robinson Robinson 1 [id number] 091832 [id number] 500800 5 Verrata Plus pressure wire (65658F) EXOSEAL 5Fr Cardinal 1 EX500 481755 879709 555762 10 (EX500) Health Signature Audit [place] Stage Time Signature Unsigned Intra-Procedure 01/14/2020 Evette Welch 11:01:20 AM RT(R) Intra-Procedure 01/14/2020 Jam Winston RN 11:01:40 AM Intra-Procedure 01/14/2020 Donovan Mederos MD 11:01:[address] [place] [address]
[2020-01-14] MEDS ORDERED: LEVOTHYROXINE125 MCG PO (07:35)
[2020-01-14] MEDS ORDERED: METOPROLOL TART25 MG PO (07:37)
[2020-01-14] MEDS ORDERED: EVOLOCUMAB 140 MG SQ (07:37)
[2020-01-14] MEDS ORDERED: ULTRAM50 MG PO (07:38)
[2020-01-14 08:14] LABS: ANION GAP 10.1 mmol/L (8-16); CALCIUM 8.9 mg/dL (8.5-10.1); CARBON DIOXIDE 27.8 mmol/L (21.0-32.0); CHOL - HDL RATIO 5.1 ratio (2.3-4.1); CREATININE - SERUM 0.8 mg/dL (0.6-1.3); LDL-HDL RATIO 3.4 ratio (1.5-3.5); POTASSIUM - SERUM 3.9 mmol/L (3.5-5.1)
[2020-01-14 08:39] LABS: BASOPHILS 0.5 % (0-2); EOSINOPHILS 3.7 % (0-7); HEMATOCRIT 41.2 % (36.0-48.0); HEMOGLOBIN 13.6 g/dL (12-16); IMMATURE GRANULOCYTES 0.2 % (0-5); LYMPHOCYTES 42.8 % (15-50); MCH 30.7 pg (26.0-34.0); MEAN PLATELET VOLUME 9.8 fL (7.4-10.4); MONOCYTES 8.6 % (2-11); NEUTROPHILS 44.2 % (40-80); PLATELET COUNT 220 10x3/uL (130-400); RBC 4.43 10x6/uL (4.00-5.40); RDW 14.7 % (11.5-14.5); WBC 6.2 10x3/uL (4.8-10.8)
--- NOTE | 2020-01-14 11:15 | NUR ---
REC'D TO ROOM 4 VIA STRETCHER FROM [employer]URITY PROFESSIONAL. MONITORS ESTAB. PT DROWSY, FOLLOWS COMMANDS. SEE MANAGER WIRELESS. ALARMS ON AND C/L IN REACH.
--- NOTE | 2020-01-14 11:30 | NUR ---
R GROIN SITE SOFT, NO S/S BLEEDING OR HEMATOMA. PULSES PALP. PT DENIES NEEDS. C/L IN REACH.
--- NOTE | 2020-01-14 12:00 | NUR ---
R GROIN SITE C/D/I, NO S/S BLEEDING OR HEMATOMA. PULSES PALP. VSS. ALARMS ON AND C/L IN REACH.
--- NOTE | 2020-01-14 12:15 | NUR ---
R GROIN SITE SOFT, C/D/I, NO S/S BLEEDING OR SWELLING. PT GIVEN ICE CHIPS PER REQUEST. VSS. C/L IN REACH.
--- NOTE | 2020-01-14 12:31 | NUR ---
DR. MARTINEZ IN TO SEE PT. GROIN SITE C/D/I. VSS.
--- NOTE | 2020-01-14 13:00 | NUR ---
R GROIN SITE SOFT, C/D/I. PULSES PALP. VSS. PT COOPERATIVE, DENIES NEEDS. C/L IN REACH.
--- NOTE | 2020-01-14 13:30 | NUR ---
R GROIN SITE SOFT, C/D/I. HOB ELEVATED AND PT GIVEN SPRITE AND SANDWICH.
--- NOTE | 2020-01-14 13:50 | NUR ---
SPOKE WITH PT , UPDATE GIVEN, D/C INSTRUCTIONS REVIEWED AND PLAN TO D/C PT HOME AT 1415.
--- NOTE | 2020-01-14 14:00 | NUR ---
R GROIN SITE SOFT, NO S/S BLEEDING OR HEMATOMA. PIV D/C'D INTACT. PT UP TO BR INDEPENDENTLY AND GOT SELF DRESSED.
--- NOTE | 2020-01-14 14:15 | NUR ---
ALL D/C INSTRUCTIONS INCLUDING RESTRICTIONS AND FOLLOW UP - REVIEWED WITH PT - PT VERBALIZES UNDERSTANDING. PT D/C'D TO PRIVATE VEHICLE WITH . PT HAS ALL BELONGINGS AND PAPER WORK.
== END 2020-01-14 14:15 | disposition home or self-care (01) ==
LOC: D.CATH 07:03
PROVIDERS: ATTEND Internal Medicine Cardiovascular Disease
DX: I25.119 Atherosclerotic heart disease of native coronary artery with unspecified angina pectoris (principal); E78.5 Hyperlipidemia, unspecified; E11.9 Type 2 diabetes mellitus without complications; Z79.84 Long term (current) use of oral hypoglycemic drugs; E07.9 Disorder of thyroid, unspecified; I10 Essential (primary) hypertension; K21.9 Gastro-esophageal reflux disease without esophagitis